=== PATIENT | male | born 2000 | race Hispanic/Latino ===

== ENCOUNTER 2024-07-01 10:06 | Emergency (ER) | payer OTHER ==
[2024-07-01 10:31] LABS: Absolute Eosinophils 0.1 K/uL (0-0.5); Absolute Lymphocytes (CBC) 1.8 K/uL (0.7-4.9); Absolute Monocytes 0.5 K/uL (0.1-1.3); Absolute Neutrophil 3.1 K/uL (1.8-8.0); Basophils % 0.8 % (0-1.3); Eosinophils % 2.4 % (0-4.4); Hematocrit 41.7 % (39.6-49.0); Lymphocytes % 32.8 % (15.3-44.8); MCH 28.2 pg (27.0-35.0); MCHC 33.5 g/dL (32.0-36.0); MCV 84.1 fL (80-100); MPV 7.7 fL (7.6-11.3); Monocytes % 8.3 % (3.3-12.3); Neutrophils % 55.7 % (41.7-73.7); Platelets 261 thou/uL (152-406); RBC Red Blood Cell Count 4.96 M/uL (4.33-5.43); Red Cell Distribution Width 14.6 % (12.1-15.2)
[2024-07-01 10:51] LABS: Anion Gap 6.1 mEq/L (5.0-15.0); Potassium 4.1 mEq/L (3.5-5.1)
--- NOTE | 2024-07-01 11:02 | RAD REPORT ---
EXAM DESCRIPTION: CT - C Spine Wo Con - 07/01/2024 10:35 am CLINICAL HISTORY: Hanging attempt COMPARISON: None. TECHNIQUE: Axial noncontrast thin cut CT images of the cervical spine were obtained with sagittal an d coronal reconstruction images generated and reviewed. All CT scans are performed using dose optimization technique as appropriate and may include automated exposure control or mA/KV adjustment according to patient size. FINDINGS: Cervical body height and alignment are normal. Craniocervical alignment is preserved. No hyperattenuating canal hematoma. No disk space narrowing. No fracture or acute bony abnormality. No paraspinal mass or hematoma. IMPRESSION: No acute cervical spine fracture or subluxation.
--- NOTE | 2024-07-01 11:06 | RAD REPORT ---
EXAM DESCRIPTION: CT - Neck Angio - 07/01/2024 10:35 am CLINICAL HISTORY: Hanging attempt COMPARISON: C Spine Wo Con dated 07/01/2024 TECHNIQUE: Axial CT angiography images of the neck was performed with multiplanar and maximum intens ity projection reconstructions. Images performed following intravenous administration of iodinated co ntrast. All CT scans are performed using dose optimization technique as appropriate and may include automated exposure control or mA/KV adjustment according to patient size. Quantification of carotid stenosis, if any, is performed according to NASCET criteria. FINDINGS: A left aortic arch is identified with normal three vessel configuration of the great vesse ls, although beam hardening artifact somewhat obscures evaluation of the distal right innominate rosio ry and origins of the right common carotid and subclavian arteries. . No significant flow abnormality is seen of the common carotid bilaterally. No significant stenosis is identified involving the cervical segments of both internal carotid arteri es. Normal flow is seen within both vertebral arteries. IMPRESSION: No significant flow abnormality of the neck vessels is identified. No evidence of dissec tion or aneurysmal dilation. CAROTID STENOSIS REFERENCE USING NASCET CRITERIA: % ICA stenosis = (1 - narrowest ICA diameter/diameter of distal cervical ICA) x 100. Mild - <50% stenosis. Moderate - 50-69% stenosis. Severe - 70-94% stenosis. Near occlusion - 95-99% stenosis. Occluded - 100% stenosis.
--- NOTE | 2024-07-01 11:40 | ER ---
Nurse's Notes [facility] Name: Matt Rubio Age: 23 yrs Sex: Male : 2000 Arrival Date: 07/01/2024 Time: 10:06 Bed 4 Private MD: Diagnosis: Suicide attempt;Depression Presentation: 07/01 10:11 Chief complaint: EMS states: patient is prisoner at [facility], attempted suicide by tm6 hanging himself with his pants. Upon EMS arrival, patient was in [facility] and only had slight redness around his neck. Patient states he did black out during event. Corrections officers found patient on ground. Coronavirus screen: Vaccine status: Patient reports receiving the 2nd dose of the covid vaccine. Ebola Screen: Patient negative for fever greater than or equal to 101.5 degrees Fahrenheit, and additional compatible Ebola Virus Disease symptoms Patient denies exposure to infectious person. Patient denies travel to an Ebola-affected area in the 21 days before illness onset. No symptoms or risks identified at this time. Initial Sepsis Screen: Does the patient meet any 2 criteria? No. Patient's initial sepsis screen is negative. Does the patient have a suspected source of infection? No. Patient's initial sepsis screen is negative. Risk Assessment: Do you want to hurt yourself or someone else? Patient reports desire/thoughts of hurting themselves or someone else. Provider notified. Onset of symptoms was July 01, 2024. Care prior to arrival: Cervical collar in place. 10:11 Method Of Arrival: EMS: [facility]6 10:11 Acuity: KILLIAN 2 tm6 Triage Assessment: 10:43 General: Appears in no apparent distress. Behavior is calm, cooperative. Pain: tm6 Complains of pain in neck Pain does not radiate. Pain currently is 3 out of 10 on a pain scale. Quality of pain is described as sore. EENT: Reports throat hurts when swallowing. Neuro: Level of Consciousness is awake, alert, obeys commands, Oriented to person, place, time, situation. Cardiovascular: Patient's skin is warm and dry. Respiratory: Airway is patent Respiratory effort is even, unlabored, Respiratory pattern is regular, symmetrical. GI: No signs and/or symptoms were reported involving the gastrointestinal system. Abdomen is flat, non-distended. : No signs and/or symptoms were reported regarding the genitourinary system. Derm: No signs and/or symptoms reported regarding the dermatologic system. Musculoskeletal: Reports pain in neck Pain is 3 out of 10 on a pain scale. Historical: - Allergies: 10:43 No Known Allergies; tm6 - PMHx: 10:43 Bipolar disorder; Schizophrenia; tm6 - PSHx: 10:43 None; tm6 - Immunization history:: Client reports receiving the 2nd dose of the Covid vaccine. - Infectious Disease History:: Denies. - Social history:: Smoking status: Patient/guardian denies using tobacco, the patient reports quitting approximately 2 years ago. Screenin:11 [facility] ED Fall Risk Assessment (Adult) History of falling in the last 3 months, tm6 including since admission Yes- single mechanical fall (1 pt) Confusion or Disorientation No (0 pts) Intoxicated or Sedated No (0 pts) Impaired Gait No (0 pts) Mobility Assist Device Used No (0 pt) Altered Elimination No (0 pt) Score/Fall Risk Level 0 - 2 = Low Risk Oriented to surroundings, Maintained a safe environment, Educated pt \\T\\ family on fall prevention, incl call for assistance when getting out of bed. Abuse screen: Denies threats or abuse. Denies injuries from another. Nutritional screening: No deficits noted. Tuberculosis screening: No symptoms or risk factors identified. Assessment: 10:11 Reassessment: see triage assessment. tm6 11:48 Reassessment: Patient appears in no apparent distress at this time. Patient and/or tm6 family updated on plan of care and expected duration. Pain level reassessed. Patient is alert, oriented x 3, equal unlabored respirations, skin warm/dry/pink. Psych: 10:11 [place] Suicide Severity Screening: In the past month, have you wished you were tm6 or wished you could go to sleep and not wake up? Patient responds "yes." Based off the client's responses additional C-SSRS screening is required. "In the past month, have you actually had any thoughts of killing yourself?" Patient responds "yes." Based off the client's response additional [place] suicide severity screening questions to be further documented on paper forms. "In your lifetime, have you ever done anything, started to do anything, or prepared to do anything to end your life?" Patient responds "yes." Patient reports suicidal intent within 3 past months. Patient reports suicidal intent occurred greater than 3 months prior. Subjective: Patient's mood is sad, Delusions are denied, Hallucinations are auditory, visual, Having thoughts of suicide. Plan for suicide is hanging. Objective: Patient is cooperative, Speech is normal, Affect is flat. Interventions: Removed personal items and placed in bag. patient is prisoner from [facility], is in shackles and has 3 guards in the room. Safety Checks: Door is open. patient is in shackles and has 3 guards in the room. Pt denies substance abuse. Vital Signs: 10:11 BP 135 / 81; Pulse 82; Resp 19; Temp 97.9(O); Pulse Ox 100% on R/A; Weight 76.2 kg; tm6 Height 5 ft. 7 in. ; Pain 3/10; 10:11 Temp 97.9(O); tm6 11:48 BP 131 / 85; Pulse 89; Resp 19; Temp 97.9; Pulse Ox 100% on R/A; Pain 0/10; tm6 10:11 Body Mass Index 26.31 (76.20 kg, 170.18 cm) tm6 10:11 Pain Scale: Adult tm6 11:48 Pain Scale: Adult tm6 ED Course: 10:11 Patient arrived in ED. ph 10:11 Arm band placed on right wrist. tm6 10:11 Patient has correct armband on for positive identification. patient in shackles with 3 tm6 guards at bedside. Provided Education on: plan of care. Client placed on continuous cardiac and pulse oximetry monitoring. NIBP monitoring applied. Pulse ox on. NIBP on. Noise minimized. Pillow given. 10:11 Initial lab(s) drawn, by ED staff, sent to lab. Maintain EMS IV. Dressing intact. Good tm6 blood return noted. Site clean \\T\\ dry. Gauge \\T\\ site: 18g RAC. Flushed with 10 mL NS. 10:12 John Garcia DO is Attending Physician. ms3 10:36 CT Neck Angio In Process Unspecified. EDMS 10:37 CT C Spine In Process Unspecified. EDMS 10:39 James Orozco RN is Primary Nurse. tm6 10:42 Triage completed. tm6 11:48 No provider procedures requiring assistance completed. IV discontinued, intact, tm6 bleeding controlled, No redness/swelling at site. Pressure dressing applied. Administered Medications: No medications were administered Medication: 10:53 VIS not applicable for this client. tm6 Outcome: 11:39 Discharge ordered by MD. grant3 11:48 Discharged to home ambulatory, with [place] [facility] tm6 11:48 Condition: stable 11:48 Discharge instructions given to patient, [place] [facility] Instructed on discharge instructions, Demonstrated understanding of instructions, 11:49 Patient left the ED. tm6 Signatures: Dispatcher [employer] EDLeia Carlton, RN RN ph John Garcia, DO DO ms3 James Orozco RN RN tm6 Corrections: (The following items were deleted from the chart) 10:50 10:11 Chief complaint: EMS states: patient is prisoner at [facility], attempted tm6 suicide by hanging himself with his pants. Upon EMS arrival, [place] was [place] [facility] and only had slight redness around his neck. Patient did not lose consciousness. tm6
--- NOTE | 2024-07-01 11:40 | EDPHYS ---
Physician Documentation [facility] Name: Matt Rubio Age: 23 yrs Sex: Male : 2000 Arrival Date: 07/01/2024 Time: 10:06 Bed 4 Private MD: ED Physician John Garcia HPI: 07/01 10:15 This 23 yrs old Male presents to ER via Unassigned with complaints of suicide ms3 attempt. 10:15 23-year-old male with past medical history of schizophrenia presents to the emergency ms3 department via [facility] after suicide attempt. Patient states he used his pants and tied him to his cell door and fell down in an attempt to hang himself. Patient endorses loss of consciousness. Patient states his neck is sore. Patient endorses suicidal ideation and visual and auditory hallucinations. Patient states he is seeing shadows and hearing voices that are mocking him. Historical: - Allergies: 10:43 No Known Allergies; tm6 - PMHx: 10:43 Bipolar disorder; Schizophrenia; tm6 - PSHx: 10:43 None; tm6 - Immunization history:: Client reports receiving the 2nd dose of the Covid vaccine. - Infectious Disease History:: Denies. - Social history:: Smoking status: Patient/guardian denies using tobacco, the patient reports quitting approximately 2 years ago. ROS: 10:15 Constitutional: Negative for fever, and chills. Cardiovascular: Negative for chest ms3 pain, and palpitations. Respiratory: Negative for shortness of breath, cough, wheezing, and pleuritic chest pain, Abdomen/GI: Negative for abdominal pain, nausea, vomiting, diarrhea, and constipation, 10:15 Skin: Negative for injury, rash, and discoloration, Neuro: Negative for headache, weakness, numbness, tingling. 10:15 Neck: Positive for pain with movement, pain at rest, 10:15 Psych: Positive for auditory hallucinations, visual hallucinations, suicide gesture, suicidal ideation, Exam: 10:15 Constitutional: This is a well developed, well nourished patient who is awake, alert, ms3 and in no acute distress. 10:15 Chest/axilla: Normal chest wall appearance and motion. Nontender with no deformity. Cardiovascular: Regular rate and rhythm with a normal S1 and S2. No gallops, murmurs, or rubs. Normal PMI, no JVD. No pulse deficits. Respiratory: Lungs have equal breath sounds bilaterally, clear to auscultation and percussion. No rales, rhonchi or wheezes noted. No increased work of breathing, no retractions or nasal flaring. Abdomen/GI: Soft, non-tender, with normal bowel sounds. No distension or tympany. No guarding or rebound. No evidence of tenderness throughout. 10:15 Neck: External neck: tenderness, that is mild, Left lateral mild petechial rash, C-spine: C-collar placed STAFF DEVELOPMENT NURSE, vertebral tenderness, is not appreciated, 11:39 ECG was reviewed by the Attending Physician. ms3 Vital Signs: 10:11 BP 135 / 81; Pulse 82; Resp 19; Temp 97.9(O); Pulse Ox 100% on R/A; Weight 76.2 kg; tm6 Height 5 ft. 7 in. ; Pain 3/10; 10:11 Temp 97.9(O); tm6 11:48 BP 131 / 85; Pulse 89; Resp 19; Temp 97.9; Pulse Ox 100% on R/A; Pain 0/10; tm6 10:11 Body Mass Index 26.31 (76.20 kg, 170.18 cm) tm6 10:11 Pain Scale: Adult tm6 11:48 Pain Scale: Adult tm6 MDM: 10:12 Patient medically screened. ms3 10:15 Differential diagnosis: acute psychotic break, depression, psychosis secondary to ms3 non-compliance. 12:40 Data reviewed: vital signs, nurses notes, lab test result(s), radiologic studies, and ms3 as a result, I will discharge patient. Independent interpretation of the following test(s) in the Emergency Department CT Scan: My interpretation is CT neck without contrast images reviewed by me do not reveal fracture. Counseling: I had a detailed discussion with the patient and/or guardian regarding the historical points, exam findings, and any diagnostic results supporting the discharge/admit diagnosis, lab results, radiology results. ED course: Discussed imaging results and labs with patient. Per [employer] staff with patient will [facility] the jail and they have mental health there that cannot care for patient. All questions were answered. Return precautions discussed include worsening symptoms, shortness of breath, or any other concerns. On reevaluation patient is alert and oriented x 4, no apparent distress, nontoxic-appearing, speaking full sentences. 07/01 10:15 Order name: CBC with Diff; Complete Time: 11:12 ms3 07/01 10:15 Order name: BMP; Complete Time: 11:12 ms3 07/01 10:15 Order name: CT Neck Angio; Complete Time: 11:12 ms3 07/01 10:15 Order name: CT C Spine; Complete Time: 11:12 ms3 EC:39 Rate is 132 beats/min. Rhythm is irregularly irregular. QRS [place] is Normal. QRS ms3 interval is normal. Clinical impression: Atrial Fibrillation with RVR. Interpreted by me. Reviewed by me. Administered Medications: No medications were administered Disposition Summary: 07/01/24 11:39 Discharge Ordered Notes: Location: Home ms3 Condition: Stable ms3 Diagnosis - Suicide attempt ms3 - Depression ms3 Followup: ms3 - With: Private Physician - When: Upon discharge from the Emergency Department - Reason: Discharge Instructions: - Discharge Summary Sheet ms3 - Suicidal Feelings: How to Help Yourself ms3 - Helping Someone Who is Suicidal ms3 Forms: - Medication Reconciliation Form ms3 - Antibiotic Education ms3 - Prescription Opioid Use ms3 - Patient Portal Instructions ms3 - Leadership Thank You Letter ms3 Signatures: Dispatcher [employer] EDMS John Garcia DO DO ms3 James Orozco, RN RN tm6 Corrections: (The following items were deleted from the chart) 12:41 12:40 ED course: Discussed imaging results and labs with patient. Per [employer] ms3 staff with patient will return to the jail and they have mental health there that cannot care for patient. All questions were answered. Return precautions discussed include worsening symptoms, shortness of breath, or any other concerns. ms3
[2024-07-01 12:00] VITALS: TEMP 97.9; O2SAT 100
[2024-07-01 12:02] VITALS: BP 131/85
== END 2024-07-01 11:49 | disposition home or self-care (01) ==
LOC: ER 10:06
DX: S10.84XA External constriction of other specified part of neck, initial encounter (principal); F32.A Depression, unspecified; F20.9 Schizophrenia, unspecified
CPT/HCPCS: 85025; 80048; 36415; 72125; 70498; Q9967; 99285